=== PATIENT | female | born 1945 | race Hispanic/Latino ===

== ENCOUNTER 2017-03-17 11:31 | Outpatient (CLI) | payer SELFPAY ==
--- NOTE | 2017-03-17 12:09 | SJPRAD ---
This is a test report POS: [id number]
== END 2017-03-17 11:32 | disposition home or self-care (01) ==
LOC: RAD 11:31
PROVIDERS: ATTEND Physician Assistant
DX: Z53.9 Procedure and treatment not carried out, unspecified reason (principal)

== ENCOUNTER 2017-03-24 14:07 | Outpatient (CLI) | payer SELFPAY ==
--- NOTE | 2017-03-24 14:15 | RAD ---
This is a test report for the ecw interface POS: [id number]
== END 2017-03-24 14:08 | disposition home or self-care (01) ==
LOC: RAD 14:07
PROVIDERS: ATTEND Otolaryngology Plastic Surgery within the Head & Neck
DX: Z53.9 Procedure and treatment not carried out, unspecified reason (principal)